=== PATIENT | female | born 1960 | race American Indian/Alaskan Native ===

== ENCOUNTER 2018-04-28 11:12 | Emergency (ER) | payer MEDICARE ==
[2018-04-28 12:07] LABS: Basophils % (Auto) 0.4 % (0.0-1.8); Eosinophils # (Auto) 0.1 K/mm3 (0.0-0.4); Hematocrit 41.8 % (30.3-42.9); Hemoglobin 13.3 gm/dl (10.1-14.3); Lymphocytes # (Auto) 2.9 K/mm3 (1.2-5.4); Lymphocytes % (Auto) 28.5 % (13.4-35.0); Mean Corpuscular HGB Conc 32 % (30-34); Mean Corpuscular Volume 85 fl (79-97); Monocytes # (Auto) 0.6 K/mm3 (0.0-0.8); Monocytes % (Auto) 6.3 % (0.0-7.3); Platelet Count 246 K/mm3 (140-440); Red Blood Count 4.93 M/mm3 (3.65-5.03); Red Cell Distribution Width 15.9 % (13.2-15.2)
[2018-04-28 12:27] LABS: BUN/Creatinine Ratio 13; Blood Urea Nitrogen 9 mg/dL (7-17); Hemolysis Index 3
--- NOTE | 2018-04-28 12:49 | XRay Report ---
FINAL REPORT EXAM: XR CHEST ROUTINE 2V HISTORY: Shortness of breath COMPARISON: None. TECHNIQUE: Frontal and lateral views of the chest. FINDINGS: The cardiomediastinal silhouette is normal in appearance. The lungs are clear without focal consolidation. There is no pleural effusion or pneumothorax. There is no acute soft tissue or osseous abnormality. IMPRESSION: No acute cardiopulmonary disease.
--- NOTE | 2018-04-28 12:49 | Emergency Department Report ---
ED Shortness of Breath HPI - General Chief Complaint: Dyspnea/Respdistress Stated Complaint: FLU SYMPTOMS Time Seen by Provider: 04/28/18 12:11 Source: patient Mode of arrival: Ambulatory Limitations: No Limitations - History of Present Illness Initial Comments: 57-year-old female presents to ED with complaint of cough and shortness of breath 2 months. He says has seen her PCP multiple times over the last few weeks. Patient states she has been given several medications including clarithromycin, cefuroxime, Tessalon Perles, cough syrup. Patient says she was seen a couple days ago and given prescription for Cipro and Medrol Dosepak for her symptoms. Patient states she continues to have wheezing, cough and fever. States was given an order to have a chest x-ray done on tomorrow by her PCP. MD Complaint: shortness of breath, cough, chest pain (with cough) -: month(s) (2) Severity: severe Quality: aching Consistency: constant Improves With: nothing Worsens With: nothing Known History Of: asthma Context: recent URI Associated Symptoms: chest pain (with cough), fever, cough Treatments Prior to Arrival: bronchodilator, other (antibiotics, steriods) - Related Data Allergies Allergy/AdvReac Type Severity Reaction Status Date / Time No Known Allergies Allergy Verified 04/28/18 11:23 ED Review of Systems ROS: Stated complaint: FLU SYMPTOMS Other details as noted in HPI Comment: All other systems reviewed and negative Constitutional: chills, fever Respiratory: cough, shortness of breath, wheezing Cardiovascular: chest pain (with cough) Gastrointestinal: denies: nausea, vomiting, diarrhea ED Past Medical Hx - Past Medical History Hx Psychiatric Treatment: Yes (depression) Hx Asthma: Yes - Surgical History Past Surgical History?: No - Social History Smoking Status: Never Smoker Substance Use Type: None ED Physical Exam - General Limitations: No Limitations General appearance: alert, in no apparent distress - Head Head exam: Present: atraumatic, normocephalic - Eye Eye exam: Present: normal appearance - ENT ENT exam: Present: mucous membranes moist - Neck Neck exam: Present: normal inspection - Respiratory Respiratory exam: Present: normal lung sounds bilaterally. Absent: respiratory distress, wheezes, rales - Cardiovascular Cardiovascular Exam: Present: regular rate, normal rhythm - GI/Abdominal GI/Abdominal exam: Present: soft. Absent: distended - Extremities Exam Extremities exam: Absent: pedal edema, calf tenderness - Neurological Exam Neurological exam: Present: alert, oriented X3 - Psychiatric Psychiatric exam: Present: normal affect, normal mood - Skin Skin exam: Present: warm, dry, intact, normal color ED Course Vital Signs 04/28/18 11:23 Temperature 97.8 F Pulse Rate 78 Respiratory 16 Rate Blood Pressure 148/72 O2 Sat by Pulse 96 Oximetry ED Medical Decision Making - Lab Data Result diagrams: 04/28/18 11:38 04/28/18 11:38 - EKG Data -: EKG Interpreted by Me EKG shows normal: sinus rhythm, axis, intervals, QRS complexes Rate: normal - EKG Data Interpretation: no acute changes, other (T wave inversion lead III) - Radiology Data Radiology results: report reviewed, image reviewed - Medical Decision Making 57-year-old female with 2 month history of cough wheezing, shortness of breath. History of asthma. Patient has seen PCP multiple times, is currently on her third antibiotic, ciprofloxacin, for her symptoms. Today in ED, patient is in no acute respiratory distress, lungs are clear, O2 sats normal. Workup unremarkable. CXR normal, no evidence of pulm edema or consolidation. EKG and troponin normal. D-dimer was slightly elevated, so V/Q scan done due to shellfish allergy. V/Q shows low probability for PE. Advised patient to d/c cipro as CXR is negative for pneumonia. Patient given info for pulmonology follow-up. Will d/c at this time. - Differential Diagnosis pneumonia, pulm edema, PE Critical care attestation.: If time is entered above; I have spent that time in minutes in the direct care o f this critically ill patient, excluding procedure time. ED Disposition Clinical Impression: Asthmatic bronchitis Disposition: DC-01 TO HOME OR SELFCARE Is pt being admited?: No Condition: Stable Instructions: Chronic Bronchitis (ED) Referrals: FELIPE NUNES MD [Staff Physician] - 3-5 Days Time of Disposition: 16:13
--- NOTE | 2018-04-28 16:00 | Nuclear Medicine Report ---
FINAL REPORT EXAM: NM LUNG SCAN PERF/VENT HISTORY: SOB TECHNIQUE: 17.5 mCi Xenon-133 was used for ventilation. 5.31 mCi technetium 99m MAA was used for perfusion. Multiple planar images were obtained. PRIORS: None currently available. FINDINGS: Ventilation: Heterogeneous. Perfusion: Match mild subsegmental perfusion deficits in both upper lobes. IMPRESSION: Based on the PIOPED study, findings represent low probability for PE. Possible COPD or reactive airway disease.
[2018-04-28 16:56] VITALS: BP 132/92
== END 2018-04-28 16:54 | disposition home or self-care (01) ==
LOC: ED 11:12
DX: J44.9 Chronic obstructive pulmonary disease, unspecified (principal); F32.9 Major depressive disorder, single episode, unspecified
CPT/HCPCS: 36415; 71046; 78582; 80048; 85025; 85379; 93005; 93010; 99284; A9540; A9558